=== PATIENT | male | born 1960 | race Caucasian/White ===

== ENCOUNTER 2020-10-04 14:58 | Emergency (ER) | payer MEDICAID, SELFPAY ==
[2020-10-04 15:02] VITALS: BP 94/63; PULSE 60; RESP 18; TEMP 36.5; O2SAT 100; BMI 33.3
--- NOTE | 2020-10-04 15:24 | EKG12_ITS ---
Test Reason : Blood Pressure : / mmHG Vent. Rate : 061 BPM Atrial Rate : 061 BPM P-R Int : 198 ms QRS Dur : 100 ms QT Int : 472 ms P-R-T Axes : 030 073 125 degrees QTc Int : 475 ms Normal sinus rhythm Possible Left atrial enlargement Cannot rule out Inferior infarct , age undetermined T wave abnormality, consider lateral ischemia Abnormal ECG Confirmed by RHODA TA, ERIK ([id number]), image editor ELMER CAMP ([id number]) on 10/07/2020 12:21:19 PM Referred By: ALICE Confirmed By:ERIK DUONG MD
--- NOTE | 2020-10-04 15:25 | ED.DCSUM_ITS ---
- ER Visit Summary Date of Service: 10/04/20 Chief Complaint: [Near syncope and blurred vision, hypotension] History of Present Illness: The patient is a 60 M [presents to the emergency department via EMS with an episode today of some blurred vision and low blood pressure. Patient states that he had stopped at a brewery and had half of a beer to a third of a beer when he started feeling like he was developing blurred vision and could not see. Patient had the telephone recorder called the squad to bring him in. He denies any chest pain. [place] somewhat lightheaded like he might pass out but did not pass out. On EMS arrival apparently the patient states that his systolic blood pressure was 73 and normally he runs in the 140s to 160s systolic. Patient also gives me history that he had recent ND July 05 and was transferred to [facility] where he got a stent that then reoccluded and he was transferred to main [facility] where he spent 55 days and was treated for pneumonia and sepsis and renal failure and apparently was dialyzed for a time as well. Patient states that he then went to rehab and has been home on his own for about 1 week. Patient states that he had been doing quite well at home. He denies any chest pain or shortness of breath with activity or exertion. On arrival to the emergency department he states that his symptoms are mostly resolved.] Physical Examination: [HEENT-PERRLA, EOMI. Cranial nerves II through XII grossly intact. TMs clear. Mucous membranes moist. No adenopathy. Cardiovascular-regular rate and rhythm without murmur or ectopy Lungs-clear to auscultation, chest wall stable without crepitus or subcu emphysema Abdomen-normoactive bowel sounds, soft, nontender, no rebound or rigidity, no peritoneal signs. Extremities-intact ?4, normal range of motion, normal pulses, atraumatic] Test Results: [EKG obtained on arrival shows sinus rhythm with a ventricular rate of 61 bpm with some nonspecific ST changes noted. No old EKG available for comparison. CBC with differential showed a white count of 11.2, hemoglobin 10, hematocrit 33.6, platelets 369. Demonstrates unremarkable. BUN 32 and creatinine 1.98. Troponin was 0.033. Alcohol was 127.] Emergency Department Course and Treatment: [IV line established on arrival. Patient had orthostatic vital signs obtained initially which were negative although his standing blood pressure was in the 80s systolic. Patient was given a liter normal same fluid bolus. His systolic improved into the 100 teens. Patient was able to ambulate in the department without difficulty and his symptoms have resolved. Repeat alcohol obtained is now 98. Patient will call his son to take him home he is advised not to drive today.] Patient is adamant that he did not have very much to drink and still only states that he had a th ird of a beer. Treatment Plan: [Patient advised to push fluids and follow-up with his primary care physician within next 3 to 5 days.] Disposition: [Discharged home in stable condition] Impression: Hypotension Alcohol intoxication [] This note was generated with [employer] dictation software. It may contain incorrect words, spelling, and punctuation that were not noted in review of the chart prior to signing ED Disposition - Plan for ED Patient: Referrals: Gianni Galarza MD [NON-STAFF] -
[2020-10-04 15:33] LABS: Absolute Lymphocyte Count 1.67 X10^3/uL (0.83-4.51); Absolute Neutrophil Count 7.8 X10^3/uL (2.0-7.7); Basophil# 0.09 X10^3/uL; Basophil% 0.8 % (0-1); Eosinophil# 0.31 X10^3/uL; Eosinophils% 2.8 % (0-5); Hematocrit 33.6 % (40-54); Hemoglobin 10.1 g/dL (13.0-16.5); Lymphocyte # 1.67 X10^3/ul (4.0); Lymphocyte % 14.9 % (19-41); Mean Corp Hgb Conc 30.1 g/dL (32-36); Mean Corpuscular Hgb 29.2 pg (27.0-32.0); Mean Corpuscular Volume 97.1 fL (80-94); Mean Platelet Vol. 8.9 fl (6.2-12.0); Monocyte# 1.22 X10^3/uL; Monocyte% 10.9 % (0-10); NRBC Flagged by Analyzer 0 % (0-5); Neutrophil # 7.81 X10^3/uL (2.7-7.7); Neutrophil % 69.9 % (47-70); Platelet Count 369 K/mm3 (150-450); RBC Distribution Width CV 14.9 % (11.6-14.6); RBC Distribution Width SD 53.2 fl (35.1-43.9); Red Blood Count 3.46 M/mm3 (4.6-6.2); White Blood Count 11.2 K/mm3 (4.4-11.0)
[2020-10-04 15:35] VITALS: BP 86/70; BP 95/58; BP 97/56; PULSE 61; PULSE 63; PULSE 75
[2020-10-04] MEDS: 0.9% Normal Saline 1,000 ML 1000 ML IV (15:43)
[2020-10-04 15:46] VITALS: BP 100/58; PULSE 63; RESP 20; O2SAT 98
[2020-10-04 15:49] LABS: Anion Gap 11 (5-15); BUN 32 mg/dL (7-18); BUN/Creat Ratio 16.2 RATIO (10-20); Calcium,Total 8.8 mg/dL (8.5-10.1); Chloride 110 mmol/L (98-107); Creatinine, Serum 1.98 mg/dL (0.70-1.30); EST Glomerular Filtration Rate 37 mL/min (>60); Est Glom Filt Rate - Afr Amer 44 mL/min (>60); Estimated Creatinine Clearance 40.45 ml/min; Glucose 125 mg/dL (74-106); Potassium 3.7 mmol/L (3.5-5.1); Sodium Level 141 mmol/L (136-145)
[2020-10-04 17:04] VITALS: BP 104/57; PULSE 68; RESP 17; O2SAT 95
--- NOTE | 2020-10-04 17:25 | ED.DEP ---
ED Disposition - Plan for ED Patient: Instructions: ED Hypotension, Orthostatic, ED Alcohol Intoxication Referrals: Gianni Galarza MD [NON-STAFF] - 3-5 Days
[2020-10-04 17:53] VITALS: BP 126/78; PULSE 75; RESP 18; O2SAT 95
--- NOTE | 2020-10-04 17:54 | ED.RN ---
pt's alcohol level is still not under the legal limit to drive, explained to pt that he will not be able to take a taxi to go get his car. pt is to get a ride home. pt's sister pam is on her way to pick pt up.
== END 2020-10-04 18:25 | disposition home or self-care (01) ==
PROVIDERS: Emergency Provider Emergency Medicine; PCP Family Medicine
DX: I95.9 Hypotension, unspecified (principal); F10.129 Alcohol abuse with intoxication, unspecified; Y90.4 Blood alcohol level of 80-99 mg/100 ml; I25.2 Old myocardial infarction
CPT/HCPCS: 80048; 82077; 84484; 85025; 93005; 96360; 99285; J7030; A4216